=== PATIENT | male | born 1950 | race Caucasian/White ===

== ENCOUNTER 2024-04-07 07:01 | Day surgery (SDC) | payer OTHER, SELFPAY ==
[2024-04-07 07:10] VITALS: BP 141/69; PULSE 74; RESP 16; TEMP 36.8; O2SAT 92
[2024-04-07] MEDS: Tropicam./Phenyleph. (1/2.5%) 5 ML BTL OD ×3 (07:31→07:43)
--- NOTE | 2024-04-07 08:16 | ANES.PREOP_ITS ---
General Info Date of Service Date Performed: 04/07/24 Height: 5 ft 10 in Weight: 90.8 kg Body Mass Index (BMI): 28.7 Surgical Procedure: Operation Date: 04/07/24 09:40 Proposed Procedure Side Surgeon p Cataract Extraction with IOL Implant Right Harry Miramontes MD Meds Allergies and Home Medications Allergies Allergy/AdvReac Type Severity Reaction Status Date / Time ciprofloxacin Allergy Unknown Unknown Verified 04/07/24 07:42 Home Medication ?Medication ?Instructions ?Recorded amlodipine 10 mg tablet 10 mg PO QPM 04/05/24 aspirin 25 mg-dipyridamole 200 mg 1 cap PO BID 04/05/24 capsule,ext.release 12 hr multiphase atorvastatin 40 mg tablet 40 mg PO QPM 04/05/24 betamethasone dipropionate 0.05 % 1 applic topical DAILY 04/05/24 topical ointment cimetidine 300 mg tablet 300 mg PO DAILY 04/05/24 fluticasone 500 mcg-salmeterol 50 1 inh inhalation DIRECTED 04/05/24 mcg/dose blistr powdr for inhalation (Wixela Inhub) Current Visit Medications: Current Medications Generic Name Dose Route Start Last Admin Trade Name Freq PRN Reason Stop Dose Admin Acetaminophen 1,000 mg 04/07/24 06:00 Acetaminophen 500 Mg Tab PO 05/07/24 05:59 Q4H PRN PRN Balanced Salt Solution 500 ml 04/07/24 06:00 Balanced Salt Soln.-Plus 500 Ml Bag OP 05/07/24 05:59 DIRECTED [facility] Miscellaneous Medication 0 ml 04/07/24 06:00 Prednisolone 1%, Moxifloxacin 0.5%, Bromfenac 0.09% 5.6ml Btl OD 05/07/24 05:59 DIRECTED PETRA Miscellaneous Medication 0 ml 04/07/24 06:00 04/07/24 07:43 Tropicam./Phenyleph. (1/2.5%) 5 Ml Btl OD 05/07/24 05:59 1 drp DIRECTED PETRA Administration Tetracaine HCl 0 ml 04/07/24 06:00 Tetracaine 0.5% 4 Ml Btl OD 05/07/24 05:59 DIRECTED PETRA PFSH Active Problems Active Problems: Problem Status Onset Code Posterior subcapsular age-related cataract, right eye Acute H25.041 Cortical age-related cataract, right eye Acute H25.011 Nuclear age-related cataract, right eye Acute H25.11 Medical History Medical History Vertebral artery stenosis Vertebral artery occlusion Transient cerebral ischemia ~5 years ago Tobacco abuse Tension type headache 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 denies this Hypertension Hyperlipemia History of malignant neoplasm of prostate Generalized atherosclerosis Epigastric pain Disorder of carotid artery Macular degeneration Chronic obstructive lung disease Cervical radiculopathy CVA (cerebral vascular accident) ~5+ years ago. Pt. states has some right hand fine motor skills (i.e. 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 states baseline cough forover 40 years Surgical History Surgical History History of nephrectomy right ureter (late s) History of prostatectomy 2012 History of esophagogastroduodenoscopy History of colonoscopy Tobacco Smoking/Tobacco Use Status: Current every day Tobacco Type: cigarettes Substance Use Substance use: Never Substance use type: does not use Vital Signs and Lab Results Vital Signs Most Recent Vital Signs in EMR: Most Recent Vital Signs Temp Pulse Resp BP Pulse Ox 36.8 C 74 16 141/69 H 92 04/07/24 07:10 04/07/24 07:10 04/07/24 07:10 04/07/24 07:10 04/07/24 07:10 Lab Results Blood Type / Crossmatch: No Data to Display Complete Blood Count: No Data to Display Complete Metabolic Panel: No Data to Display Liver Function Panel: No Data to Display Coagulation Panel: No Data to Display Cardiac Panel: No Data to Display Arterial Blood Gas: No Data to Display Venous Blood Gas: No Data to Display Pancreas Panel: No Data to Display Thyroid Panel: No Data to Display Infectious Disease: No Data to Display Blood Cultures: No Data to Display Toxicology Panel: No Data to Display Anesthesia Assessment and Plan Anesthesia History Personal History: No History of Anesthesia Complications Family History: Family History Unknown Exercise Tolerance Exercise Tolerance: Metabolic Equivalents<4 Cardiac & Pulmonary Exam Cardiac Exam: Normal S1/S2 Heart Sounds Pulmonary Exam: Other (Diminished) Implantable Cardiac Device Does patient have a Pacemaker or an ICD?: No Airway Exam Known Difficult Airway: No Mallampati Class: 2 Mouth Opening: Normal (> 3cm) Thyromental Distance: Greater than 3 cm Neck Range of Motion: Full ROM Neck Circumference: Normal Teeth Condition: Edentulous ASA Classification ASA Score: ASA 3 Emergency Case?: No NPO Status NPO Status: NPO Clears >2 hours, Solids >8 hours Anesthesia Plan Resuscitation Status: Full Code Anesthesia Technique: MAC Anesthesia Airway Planned: Natural Airway Monitors Used: Standard Monitors
[2024-04-07] MEDS: Povidone-Iodine Ophth 30 ML BTL (08:52)
[2024-04-07] MEDS: Tetracaine 0.5% 4 ML BTL OD (08:52)
[2024-04-07 08:56] VITALS: BMI 28.7
[2024-04-07] MEDS: Lidocaine 1% Pres-Free 5 ML VIAL (08:59)
[2024-04-07] MEDS: Duovisc Viscoelastic System EACH 1 EACH (08:59)
[2024-04-07] MEDS: Phenylephrine/Lidocaine (15/10) MG/ML 1 ML VIAL (09:00)
[2024-04-07] MEDS: Trypan Blue 0.06% 0.5 ML SYR (09:01)
[2024-04-07] MEDS: Balanced Salt Soln.-PLUS 500 ML BAG OP (09:01)
--- NOTE | 2024-04-07 09:15 | RT.EKG_ITS ---
APPROVED REPORT Exam: Resting ECG Reason for Exam: ? Rhythm change Patient Location: O HR:60 bpm ECG Measurements Heart Rate 60 AXIS MO 148 P 79 QRSd 100 QRS 96 QT 430 T 256 QTc 430 Conclusion Sinus bradycardia...rate< 60 Atrial premature complex...SV complex w/ short R-R interval Right axis deviation...QRS axis ( 91,269) Nonspecific T abnrm, anterolateral leads...T <-0.10mV, I aVL V2-V6
[2024-04-07] MEDS: Prednisolone 1%, Moxifloxacin 0.5%, Bromfenac 0.09% 5.6ML BTL OD (09:18)
[2024-04-07 09:25] VITALS: BP 145/76; PULSE 65; RESP 18; TEMP 36.6; O2SAT 92
--- NOTE | 2024-04-07 09:25 | W.PM.DSUDISC ---
Date of service: 04/07/24 Discharge Plan Disposition Patient Disposition: Home Discharge Details Attending Provider: Harry Miramontes Primary Care Provider: MICHAEL MERINO Home Meds and New Rx's Prescriptions: No Action amlodipine 10 mg tablet 10 mg PO QPM aspirin-dipyridamole 25-200 mg capsule, ER multiphase 12 hr 1 cap PO BID atorvastatin 40 mg tablet 40 mg PO QPM betamethasone dipropionate 0.05 % ointment 1 applic topical DAILY cimetidine 300 mg tablet 300 mg PO DAILY fluticasone propion-salmeterol [Wixela Inhub] 500-50 mcg/dose blister with device 1 inh inhalation DIRECTED Discharge Instructions Stand Alone Forms: [facility] Post-Op CataractMackenzie ([facility]) Discharge Orders Discharge Orders: Discharge Order (Routine); Ordered 04/07/24 Ordered By: Harry Miramontes DS: Diagnosis Discharge Diagnosis (1) Posterior subcapsular age-related cataract, right eye: Status: Resolved (2) Cortical age-related cataract, right eye: Status: Resolved (3) Nuclear age-related cataract, right eye: Status: Resolved
--- NOTE | 2024-04-07 09:25 | W.PM.OP ---
Operative Note Operative Note PRE-OP DIAGNOSIS: Nuclear/cortical/posterior subcapsular cataract, right eye POST-OP DIAGNOSIS: same PROCEDURE: Cataract extraction using phacoemulsification with intraocular lens implant, right eye SURGEON: Harry Miramontes ANESTHESIA TYPE: Local By Surgeon and MAC Refer to Anesthesia Record ESTIMATED BLOOD LOSS: 0 PATHOLOGY: none sent COMPLICATIONS: None Patient was transported to: same day Patient's condition: stable Implants: Sravan Clareon [id number] Indications: Progressive decreased vision due to cataract, right eye Procedure Description: CATARACT SURGERY OPERATIVE REPORT PREOPERATIVE DIAGNOSIS: Nuclear/cortical/posterior subcapsular cataract, right eye POSTOPERATIVE DIAGNOSIS: Same OPERATION: Cataract extraction using phacoemulsification with posterior chamber intraocular lens implant, right eye. IOL: IOL Universal Winding Machine Operator/Model: Sravan Clareon [id number] IOL Power: + 16.0 diopters IOL Serial Number: [id number] Optic Diameter: 6.0mm Haptic/Overall Diameter: 13.0mm PHACO INFO: Sravan Amazonurion Vision System with OZil and Active Fluidics Cumulative Dispersed Energy (CDE): 11.16 seconds SURGEON: Harry Miramontes MD, SUREKHA ANESTHESIA: Monitored Anesthesia Care (MAC), with local sub-tenon's anesthetic infiltration COMPLICATIONS: None SPECIMENS: None INDICATIONS FOR PROCEDURE: The patient is a 73-year-old male with history of diminished visual acuity in his right eye secondary to the development of nuclear/cortical/posterior subcapsular cataract. He is significantly symptomatic that he desires cataract surgery in attempt to improve and maximize his vision. The option of cataract surgery was offered to the patient and he wished to proceed. See office notes for detailed information. PROCEDURE: The correct surgical eye was identified and marked as the right eye and the pupil was dilated in the preoperative area using mydriatics and cycloplegics. The dilated pupil size was 5.0 mm. The patient elected to proceed without oral sedation. The patient was brought to the operating room where cardiopulmonary monitoring was instituted and surgical time-out was performed, confirming the correct operative eye and IOL power. Topical anesthesia was administered and ophthalmic povidone-iodine 5% was instilled into the conjunctival fornices. The prosper-ocular area was prepped with Betadine 10% solution and draped in the usual sterile fashion for intraocular surgery, including an aperture drape. A Tegaderm transparent film dressing was cut in half and used to cover the lashes and lid margins. Care was taken to sequester the lashes and lid margins under the Tegaderm dressing. A lid speculum was placed between the lids of the operative eye and the Sravan LuxOR Revalia operating microscope was maneuvered into position. Tobi scissors were then used to make a conjunctival buttonhole approximately 6mm posterior to the limbus in the inferonasal quadrant. Blunt dissection was carried out to expose bare sclera, and a blunt-tipped sub-tenon?s anesthesia cannula was introduced and passed posteriorly along the globe where non-preserved plain lidocaine was injected into posterior sub-Tenon?s space. A sideport knife was used to make a paracentesis port. VisionBlue was injected into the anterior chamber and allowed to sit for 20 seconds. Intraocular phenylephrine/lidocaine was injected into the anterior chamber. The anterior chamber was then filled with viscoelastic. A keratome knife was used to construct a two--plane clear corneal tunnel extending 2.0mm into clear cornea. A flap was raised on the anterior capsule and capsulorhexis forceps were used to complete a continuous curvilinear capsulorhexis of 5.0 mm. Balanced salt solution was then used to perform cortical cleaving hydrodissection and nuclear hydrodelineation until the lens could be freely rotated within the capsular bag. The lens nucleus was then disassembled and removed within the capsular bag and iris plane using phacoemulsification. Residual cortical material was removed using the I/A handpiece. The posterior capsule was carefully polished to remove as much residual lens epithelial cells as safely possible. The capsular bag was then inflated and the anterior chamber deepened with cohesive viscoelastic. The lens implant described above was inserted into the capsular bag using the Sravan Autonome Injector. A Kuglen hook was used to dial the IOL into position. Residual viscoelastic was then removed first from posterior to the IOL, then from the anterior chamber using the I/A handpiece. The lens implant was noted to center nicely within the capsular bag. The incisions were stromally hydrated, and the anterior chamber was reformed using BSS. Then 0.5cc of moxifloxacin 1.0mg/ml were injected into the capsular bag and anterior chamber. The incisions were checked with a Weck spear and found to be secure. Several drops of ophthalmic povidone-iodine 5% were then applied to the eye followed by two drops of combination steroid/NSAID/antibiotic solution. The drapes were removed and a clear plastic protective eye shield was placed over the eye. The patient was then returned to Same Day Surgery in stable condition. Date of Procedure: 04/07/24
--- NOTE | 2024-04-07 09:43 | W.ANESPOSTOP ---
Postoperative Evaluation Date, Time and Location Date Performed: 04/07/24 Time Performed: 09:39 Patient Location: Day Surgery Unit Vital Signs Most Recent Imported Vital Signs: Most Recent Vital Signs Temp Pulse Resp BP Pulse Ox 36.6 C 65 18 145/76 H 92 04/07/24 09:25 04/07/24 09:25 04/07/24 09:25 04/07/24 09:25 04/07/24 09:25 Pain Score Most Recent Pain Score: Most Recent Pain Score Pain Level 0 04/07/24 09:25 Assessment Mental Status: Awake (Alert & Oriented to Patient Baseline) Airway and Respiratory Function: Patent airway with normal (patient baseline) respiratory exam Cardiovascular Function: Hemodynamically Stable Hydration Status: Adequately Hydrated Nausea & Vomiting: No Nausea or Vomiting Pain: Pt. Denies Any Pain Peripheral Nerve Block: Patient did not receive a nerve block Postoperative Comments:: 12-lead EKG obtained, Sinus Bradycardia. Patient is clear for discharge.
== END 2024-04-07 09:50 | disposition home or self-care (01) ==
PROVIDERS: PCP Family Medicine; Visit Provider Ophthalmology
PROC: (CPT 66984; principal; 2024-04-07 09:30)
DX: H25.041 Posterior subcapsular polar age-related cataract, right eye (principal); H25.011 Cortical age-related cataract, right eye; H25.11 Age-related nuclear cataract, right eye
CPT/HCPCS: 66984; 00123; V2632; 93005; 93010; J2003

== ENCOUNTER 2024-04-14 10:01 | Day surgery (SDC) | payer OTHER, SELFPAY ==
--- NOTE | 2024-04-13 20:47 | W.PREOPHP ---
Assessment and Plan Assessment and plan (1) Posterior subcapsular age-related cataract of left eye: Status: Acute Assessment and plan: Assessment: Progressive decreased vision left eye. Plan: Cataract extraction with with intraocular lens implantation left eye (2) Nuclear age-related cataract, left eye: Status: Acute Assessment and plan: Assessment: Progressive decreased vision left eye. Plan: Cataract extraction with with intraocular lens implantation left eye History of Present Illness History of Present Illness Chief Complaint: progressive decreased vision left eye Narrative: Patient is a 70-year-old male with history of progressive decreased vision in both eyes secondary to the development of dense bilateral nuclear/posterior subcapsular cataract. He is significantly symptomatic from decreased vision at both distance and near. He notes everything is blurry he has to use a large magnifier to read small print. He cannot read road signs or small words on the television or closed captioning. He underwent cataract surgery in the right eye on 04/07/2024 and is doing well postoperatively. He now presents for cataract surgery in the left eye. 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 denies this Hypertension Hyperlipemia History of malignant neoplasm of prostate Generalized atherosclerosis Epigastric pain Disorder of carotid artery Macular degeneration Chronic obstructive lung disease Cervical radiculopathy CVA (cerebral vascular accident) ~5+ years ago. Pt. states has some right hand fine motor skills (i.e. 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 Carcinoma of prostate Bilateral carpal tunnel syndrome Allergic contact dermatitis Abnormal weight loss Surgical History History of nephrectomy right ureter (late 's) History of prostatectomy 2012 History of esophagogastroduodenoscopy History of colonoscopy Social History Smoking/Tobacco Use Status: Current every day Tobacco Type: cigarettes Smoking risk assessment performed?: Yes Alcohol Intake: current Alcohol Intake frequency: holidays/special occasions only Drug use: Never Substance use type: does not use Details: Pt declines to answer how many packs/cigarettes per day depends on how many people aggravate me Housing: house Do you feel safe at home: Yes Do you feel safe in your relationship?: Yes Additional Social history: Pt declines to answer says I am so sick of being asked that Meds Allergies and Home Medications Allergies Allergy/AdvReac Type Severity Reaction Status Date / Time ciprofloxacin Allergy Unknown Unknown Verified 04/14/24 10:40 Home Medications ?Medication ?Instructions ?Recorded ?Confirmed ?Type amlodipine 10 mg tablet 10 mg PO QPM 04/05/24 04/14/24 History aspirin 25 mg-dipyridamole 200 mg 1 cap PO BID 04/05/24 04/14/24 History capsule,ext.release 12 hr multiphase atorvastatin 40 mg tablet 40 mg PO QPM 04/05/24 04/14/24 History betamethasone dipropionate 0.05 % 1 applic topical DAILY 04/05/24 04/14/24 History topical ointment cimetidine 300 mg tablet 300 mg PO DAILY 04/05/24 04/14/24 History fluticasone 500 mcg-salmeterol 50 1 inh inhalation DIRECTED 04/05/24 04/14/24 History mcg/dose blistr powdr for inhalation (Wixela Inhub) Exam Resp Auscultation: crackles, diminished lung sounds, rales and wheezes Cardio Rate: regular rate Rhythm: regular rhythm
[2024-04-14] VITALS (8 sets, daily range): BP systolic 113; BP diastolic 82; PULSE 79; RESP 18–32; TEMP 36.4; O2SAT 87–95; BMI 28.7
--- NOTE | 2024-04-14 09:26 | W.ANESPRE ---
General Info Date of Service Date Performed: 04/14/24 Height: 5 ft 10 in Weight: 90.8 kg Body Mass Index (BMI): 28.7 Surgical Procedure: Operation Date: 04/14/24 12:40 Proposed Procedure Side Surgeon p Cataract Extraction with IOL Implant Left Harry Miramontes MD Meds Allergies and Home Medications Allergies Allergy/AdvReac Type Severity Reaction Status Date / Time ciprofloxacin Allergy Unknown Unknown Verified 04/14/24 10:40 Home Medication ?Medication ?Instructions ?Recorded amlodipine 10 mg tablet 10 mg PO QPM 04/05/24 aspirin 25 mg-dipyridamole 200 mg 1 cap PO BID 04/05/24 capsule,ext.release 12 hr multiphase atorvastatin 40 mg tablet 40 mg PO QPM 04/05/24 betamethasone dipropionate 0.05 % 1 applic topical DAILY 04/05/24 topical ointment cimetidine 300 mg tablet 300 mg PO DAILY 04/05/24 fluticasone 500 mcg-salmeterol 50 1 inh inhalation DIRECTED 04/05/24 mcg/dose blistr powdr for inhalation (Wixela Inhub) Current Visit Medications: Current Medications Generic Name Dose Route Start Last Admin Trade Name Freq PRN Reason Stop Dose Admin Acetaminophen 1,000 mg 04/14/24 06:00 Acetaminophen 500 Mg Tab PO 05/14/24 05:59 Q4H PRN PRN Balanced Salt Solution 500 ml 04/14/24 06:00 Balanced Salt Soln.-Plus 500 Ml Bag OP 05/14/24 05:59 DIRECTED [facility] Miscellaneous Medication 0 ml 04/14/24 06:00 Prednisolone 1%, Moxifloxacin 0.5%, Bromfenac 0.09% 5.6ml Btl OS 05/14/24 05:59 DIRECTED [facility] Miscellaneous Medication 0 ml 04/14/24 06:00 Tropicam./Phenyleph. (1/2.5%) 5 Ml Btl OS 05/14/24 05:59 DIRECTED [facility] Tetracaine HCl 0 ml 04/14/24 06:00 Tetracaine 0.5% 4 Ml Btl OS 05/14/24 05:59 DIRECTED [facility] PFSH Active Problems Active Problems: Problem Status Onset Code Posterior subcapsular age-related cataract of left eye Acute H25.042 Nuclear age-related cataract, left eye Acute H25.12 Posterior subcapsular age-related cataract, right eye Resolved H25.041 Cortical age-related cataract, right eye Resolved H25.011 Nuclear age-related cataract, right eye Resolved H25.11 Medical History Medical History Vertebral artery stenosis Vertebral artery occlusion Transient cerebral ischemia ~5 years ago Tobacco abuse Tension type headache 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 denies this Hypertension Hyperlipemia History of malignant neoplasm of prostate Generalized atherosclerosis Epigastric pain Disorder of carotid artery Macular degeneration Chronic obstructive lung disease Cervical radiculopathy CVA (cerebral vascular accident) ~5+ years ago. Pt. states has some right hand fine motor skills (i.e. 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 states baseline cough forover 40 years Surgical History Surgical History History of nephrectomy right ureter (late 's) History of prostatectomy 2012 History of esophagogastroduodenoscopy History of colonoscopy Tobacco Smoking/Tobacco Use Status: Current every day Tobacco Type: cigarettes Substance Use Substance use: Never Substance use type: does not use Vital Signs and Lab Results Lab Results Blood Type / Crossmatch: No Data to Display Complete Blood Count: No Data to Display Complete Metabolic Panel: No Data to Display Liver Function Panel: No Data to Display Coagulation Panel: No Data to Display Cardiac Panel: No Data to Display Arterial Blood Gas: No Data to Display Venous Blood Gas: No Data to Display Pancreas Panel: No Data to Display Thyroid Panel: No Data to Display Infectious Disease: No Data to Display Blood Cultures: No Data to Display Toxicology Panel: No Data to Display Imaging and Studies Imaging and Studies Study information below may be from another EMR and interpreted by another provider. Please see original notes in EMR for more complete details. EKG Summary: EKG PATIENT NAME: Beka Severino UNIT #: [id number] ORDERING PROVIDER: Rosa Goyal CRNA PRIMARY CARE PROVIDER: MICHAEL MERINO DATE/TIME OF SERVICE: 04/07/24 0937 : 1950 PERFORMING LOCATION: [facility] APPROVED REPORT Exam: Resting ECG Reason for Exam: ? Rhythm change Patient Location: O HR:60 bpm ECG Measurements Heart Rate 60 AXIS NV 148 P 79 QRSd 100 QRS 96 QT 430 T256 QTc 430 Conclusion Sinus bradycardia...rate< 60 Atrial premature complex...SV complex w/ short R-R interval Right axis deviation...QRS axis ( 91,269) Nonspecific T abnrm, anterolateral leads...T <-0.10mV, I aVL V2-V6 <Electronically signed by YESI THOMPSON MD in [place]> E-Sign Date: 04/07/24 E-Sign Time: 941 Anesthesia Assessment and Plan Anesthesia History Personal History: No History of Anesthesia Complications Family History: No Family History of Anesthesia Complications Exercise Tolerance Exercise Tolerance: Metabolic Equivalents<4 Cardiac & Pulmonary Exam Cardiac Exam: Normal S1/S2 Heart Sounds Pulmonary Exam: Active Dry Cough and Other (Diminished with expiratory wheezes) Implantable Cardiac Device Does patient have a Pacemaker or an ICD?: No Airway Exam Known Difficult Airway: No Mallampati Class: 2 Mouth Opening: Normal (> 3cm) Thyromental Distance: Greater than 3 cm Neck Range of Motion: Full ROM Neck Circumference: Normal Teeth Condition: Edentulous ASA Classification ASA Score: ASA 3 Emergency Case?: No NPO Status NPO Status: NPO Clears >2 hours, Solids >8 hours Anesthesia Plan Resuscitation Status: Full Code Anesthesia Technique: MAC Anesthesia Airway Planned: Natural Airway Monitors Used: Standard Monitors Preoperative Comments:: Patient tachypneic, RR in the high 20s to 30s. Now requiring 4lpm to maintain >91%. On RA we are seeing 78-84%. Less when lying flat. Patient is postponed for the day and is being recommended to proceed to the ER. Patient says he does not want to and would like to go home. Patient did leave AMA
[2024-04-14] MEDS: Tropicam./Phenyleph. (1/2.5%) 5 ML BTL OS ×3 (10:44→10:54)
--- NOTE | 2024-04-14 12:49 | NUR.NOTE ---
Nursing Note: Patient presented to [facility] for cataract surgery. Upon arrival to pre-operative area he was found to have a spO2 measured at 76% on RA. After sitting while I set up a nasal cannula to place him on oxygen, spO2 adria to mid 80's. Oxygen was set at 2L on NC to start, spO2 fluctuating 84-86%, oxygen raised to 4L and spO2 adria and maintained at 92%. Anesthesia notified and Dr. Miramontes notified, Jacob Magana CRNA came to assess the patient upon arrival. Patient also had wet non-productive cough with tight wheezing sounds in bilateral lower lobes. Patient was tachypneic at 33-35 breaths per minute with shallow breaths and sitting in tripod position. Patient placed on central monitor with continuous cardiac and spO2 monitoring. Jacob CARR requested to do a room air trial on the patient. Room air trial was unsuccessful, patient placed on 2L NC briefly, spO2 maintained at 89-90%, O2 removed and patient stayed on RA for several minutes, spO2 dropped to 86% and continued to steadily drop. Patient then placed on 3L NC and spO2 adria and maintained at 90-92% afterwards. Jacob CARR and Dr. Miramontes made aware of this, Jacob CARR came to re-assess the patient. Patient education provided and recommendations for patient to be seen in emergency department in order to assess for cause of his oxygen status by Jacob CARR. Patient ultimately declined and when told that we would be unable to proceed with surgery today, patient left the unit with his . He was continuously monitored by nursing staff for the duration of his stay in [facility] with adjustments to supplemental oxygen when indicated.
--- NOTE | 2024-04-14 13:11 | PDOC.ANES ---
Date of service: 04/14/24 Time of Service: 13:13 Anesthesia Note Report Anesthesia Note: I did call [facility] and attempted to talk to Adal's PCP directly, however, she was unavailable. I discussed the patients course of care with their chief business development officer, Ceci and she did state she would call Adal to reinforce going to the ED as appropriate and would make an office appointment for this coming week. We look forward to seeing Adal once he has been evaluated and stabilized.
== END 2024-04-14 10:02 | disposition home or self-care (01) ==
LOC: SUR 10:01
PROVIDERS: Visit Provider Ophthalmology
DX: H25.042 Posterior subcapsular polar age-related cataract, left eye (principal); H25.12 Age-related nuclear cataract, left eye; Z53.09 Procedure and treatment not carried out because of other contraindication
CPT/HCPCS: 00123; J2003